=== PATIENT | male | born 1965 | race Caucasian/White ===

== ENCOUNTER → 2016-07-25 | Outpatient (CLI) | payer MEDICARE ==
[~2016-07-25] MED LIST: ASPI-664 PO; ATOR40TA68 PO; CITA20TA11 PO; FURO40TA4 PO; LANT3I SC; LOSA1TAB20 PO; NOVO3I SC; PRAS10TA6 PO
== END | disposition home or self-care (01) ==
LOC: CRE 11:10
PROVIDERS: ATTEND Hospitalist
DX: I25.10 Atherosclerotic heart disease of native coronary artery without angina pectoris (principal); Z98.61 Coronary angioplasty status; Z95.5 Presence of coronary angioplasty implant and graft
CPT/HCPCS: 93797

== ENCOUNTER 2016-08-25 11:06 | Inpatient (IN) | payer MEDICARE ==
[2016-08-25] VITALS (8 sets, daily range): BP systolic 126–165; BP diastolic 63–90; PULSE 61–75; RESP 18–20; TEMP 98.3; Ht 177.8 cm; Wt 97.5 kg
[~2016-08-25] VITALS: Ht 177.8 cm; Wt 97.5 kg
[2016-08-25] MEDS ORDERED: ONDANSETRON 4 MG INJ IV STA (11:25)
[2016-08-25] MEDS ORDERED: morphine 2 MG INJ IV STA (11:25)
[2016-08-25] MEDS ORDERED: ASPIRIN 81 MG TAB PO ONE (11:30)
[2016-08-25] MEDS ORDERED: NITROGLYCERIN (SL) 0.4 MG TAB SL ONE (11:30)
[2016-08-25 12:07] LABS: BASOPHILS % 0.3 % (0.0-2.0); EOSINOPHILS # 0.4 10^3/ul (0.0-0.5); EOSINOPHILS % 5.7 % (0.0-7.0); HEMATOCRIT 39.7 % (42.0-52.0); HEMOGLOBIN 13.2 g/dl (14.0-18.0); LYMPHOCYTES # 1.8 10^3/ul (0.8-2.9); LYMPHOCYTES % 26.9 % (15.0-51.0); MEAN CORPUSCULAR HEMOGLOBIN 26.5 pg (29.0-33.0); MEAN CORPUSCULAR HGB CONC 33.2 g/dl (32.0-37.0); MONOCYTE # 0.4 10^3/ul (0.3-0.9); NEUTROPHIL # 4.2 10^3/ul (1.6-7.5); NEUTROPHILS % 61.1 % (39.0-77.0); PLATELET COUNT 269 10^3/UL (140-440); RED BLOOD COUNT 4.97 10^6/ul (4.70-6.10); RED CELL DISTRIBUTION WIDTH 14.5 % (11.5-14.5); UNCORRECTED WBC 6.9 10^3/ul (4.8-10.8); WHITE BLOOD COUNT 6.9 10^3/ul (4.8-10.8)
[2016-08-25 12:10] LABS: CONDITION 1; LH ANALYZER COMMENTS 1
[2016-08-25 12:16] LABS: ALBUMIN 3.8 g/dl (3.3-4.9)
[2016-08-25 12:17] LABS: POTASSIUM 3.9 mmol/L (3.5-5.1)
[2016-08-25 12:18] LABS: INR 0.93; PROTIME 12.5 Sec (12.2-14.2)
--- NOTE | 2016-08-25 12:18 | RADRPT ---
PROCEDURE: XR Chest. CLINICAL INDICATION: Chest pain TECHNIQUE: Single portable view of the chest was obtained COMPARISON: 06/22/2016 FINDINGS: The heart is enlarged. The patient is status post sternotomy. The lungs are clear. There is no pleural effusion or pneumothorax. RPTAT: AA IMPRESSION: Mild Cardiomegaly. .Car Heredia MD, MD Date Time Electronically viewed and signed by .Car Heredia MD, MD on 08/25/2016 12:17 .S/
[2016-08-25 12:19] LABS: ALBUMIN/GLOBULIN RATIO 1.35; BILIRUBIN,INDIRECT 0.7 mg/dl (0-1.1); BILIRUBIN,TOTAL 0.7 mg/dl (0.2-1.3); CREATININE 0.64 mg/dl (0.61-1.24); TOTAL PROTEIN 6.6 g/dl (6.1-8.1)
[2016-08-25 12:20] LABS: CALCIUM 9.4 mg/dl (8.4-10.2)
[2016-08-25 12:41] LABS: TROPONIN-I 0.053 ng/ml (0.00-0.12)
--- NOTE | 2016-08-25 12:57 | ERA ---
ER Documentation Chief Complaint Date/Time DATE: 08/25/16 TIME: 12:54 Chief Complaint CHEST PAIN SINCE 3 DAYS. GETTING WORSE TODAY. RELIEF WITH NITRO. MILD SOB HPI 51-year-old man presents with left-sided pressure-like chest pain 5 days although getting worse over the last few days. He was at his cardiac rehabilitation facility today and experienced exertional chest pain and was referred here for evaluation. He states his pain is pressure-like and worse with exertion, he used nitroglycerin sublingual without relief. He has a history of coronary artery disease, prior CABG, PCI with stenting. Patient denies cough, no calf or leg swelling, no fevers or chills, no vomiting or diarrhea. ROS All systems reviewed and are negative except as per history of present illness. Medications Home Meds Active Scripts Prasugrel Hydrochloride* (Effient*) 10 Mg Tablet, 10 MG PO DAILY for 30 Days, TAB Prov:NATACHA GILLIS M. 06/23/16 Furosemide* (Furosemide*) 40 Mg Tablet, 40 MG PO BID for 30 Days, TAB Prov:NATACHA GILLIS . 06/23/16 Insulin Aspart* (Novolog Insulin Pen*) 100 Unit/Ml Soln, 10 UNIT SC WITH MEALS for 30 Days, UNITS with meals Prov:NATACHA GILLIS M. 06/23/16 Reported Medications Aspirin (Low Dose Aspirin) 81 Mg Tablet.dr, 81 MG PO DAILY, #30 TAB 06/22/16 Citalopram Hydrobromide* (Celexa*) 20 Mg Tablet, 20 MG PO DAILY, #30 TAB 06/22/16 Insulin Glargine* (Lantus*) 100 Unit/Ml Soln, 50 UNIT SC BID, #1 VIAL 06/22/16 Atorvastatin* (Atorvastatin*) 40 Mg Tablet, 40 MG PO QHS, #30 TAB 06/22/16 Losartan-Hydrochlorothiazide (Losartan-HCTZ) 100-25 Mg Tab, 1 TAB PO DAILY, TAB 06/22/16 Allergies Allergies: Coded Allergies: No Known Allergy (Unverified , 06/22/16) PMhx/Soc Coronary artery disease status post coronary artery bypass graft and previous right coronary artery thrombectomy and percutaneous transluminal coronary angioplasty with stenting of the distal RCA, hypertension, diabetes mellitus, congestive heart failure with a left ventricular ejection fraction 55%, anemia History of Surgery: Yes (2016, aug 2013) Anesthesia Reaction: No Hx Neurological Disorder: No Hx Respiratory Disorders: No Hx Cardiac Disorders: Yes (aug 2013, 2015, 2014) Hx Psychiatric Problems: No Hx Miscellaneous Medical Probl: No Hx Alcohol Use: No Hx Substance Use: No Hx Tobacco Use: No FmHx Family History: diabetes Physical Exam Vitals Vital Signs Date Time Temp Pulse Resp B/P Pulse Ox O2 Delivery O2 Flow Rate FiO2 08/25/16 12:08 98.3 79 20 168/96 98 Room Air 08/25/16 11:52 Nasal Cannula 08/25/16 11:07 97.9 66 22 168/96 99 Physical Exam GENERAL: Well-developed, well-nourished, well-hydrated, in no apparent distress , looks nontoxic in appearance HEENT: Moist mucous membranes, pink conjunctiva, no cervical spine tenderness or step-off deformities, no goiter, no jaundice or icterus, extraocular movements intact without pain. No submandibular induration, and no pharyngeal erythema NEURO: Alert and oriented 3, cranial nerves II through XII intact bilaterally, pupils equal round reactive to light, no focal deficits or facial asymmetry, sensation intact distally Strength 5/5 in upper and lower extremities bilaterally CARDIAC: Regular rate and rhythm, no murmurs rubs or gallops. Median sternotomy scar which reveals well healing LUNGS: Clear bilaterally no wheezing crackles or stridor ABDOMEN: Soft nontender, no guarding, no rigidity, no rebound, no psoas sign no obturator sign. Normoactive bowel sounds SKIN: Warm and dry to touch, no abrasions, contusions, or hematomas, no lacerations, no ecchymosis, no target lesions, and without ulcers EXTREMITIES: No clubbing cyanosis or edema, calves are bilaterally symmetrical, no Homans sign, no popliteal cord sign. Distal pulses equal and bilateral PSYCH: Normal affect without agitation or irritability Result Diagram: 08/25/16 1152 08/25/16 1152 Results 24 hrs Laboratory Tests Test 08/25/16 11:52 Alanine Aminotransferase (ALT/SGPT) 29IU/L Albumin 3.8g/dl Albumin/Globulin Ratio 1.35 Alkaline Phosphatase 100IU/L Anion Gap 14 Aspartate Amino Transf (AST/SGOT) 21IU/L B-Type Natriuretic Peptide 398PG/ML Basophils # 0.010^3/ul Basophils % 0.3% Blood Morphology Comment Blood Urea Nitrogen 13mg/dl Calcium Level 9.4mg/dl Carbon Dioxide Level 32mmol/L Chloride Level 99mmol/L Creatinine 0.64mg/dl Direct Bilirubin 0.00mg/dl Eosinophils # 0.410^3/ul Eosinophils % 5.7% Globulin 2.80g/dl Glucose Level 224mg/dl Hematocrit 39.7% Hemoglobin 13.2g/dl Hemoglobin A1c 9.2% INR International Normalized Ratio 0.93 Indirect Bilirubin 0.7mg/dl Lipase 24U/L Lymphocytes # 1.810^3/ul Lymphocytes % 26.9% Mean Corpuscular Hemoglobin 26.5pg Mean Corpuscular Hemoglobin Concent 33.2g/dl Mean Corpuscular Volume 80.0fl Mean Platelet Volume 8.0fl Monocytes # 0.410^3/ul Monocytes % 6.0% Neutrophils # 4.210^3/ul Neutrophils % 61.1% Nucleated Red Blood Cells # 0.010^3/ul Nucleated Red Blood Cells % 0.0/100WBC Platelet Count 95226^3/UL Potassium Level 3.9mmol/L Prothrombin Time 12.5Sec Prothrombin Time Ratio 1.0 Red Blood Count 4.9710^6/ul Red Cell Distribution Width 14.5% Sodium Level 141mmol/L Total Bilirubin 0.7mg/dl Total Protein 6.6g/dl Troponin I 0.053ng/ml White Blood Count 6.910^3/ul Current Medications Medications (Trade) Dose Ordered Sig/Jeff Route PRN Reason Start Time Stop Time Status Last Admin Dose Admin Nitroglycerin (Nitroglycerin (Sl Tab) 0.4 Mg) 1 tab ONCE ONCE SL 08/25/16 11:30 08/25/16 11:31 DC 08/25/16 12:02 Aspirin (Aspirin) 324 mg ONCE ONCE PO 08/25/16 11:30 08/25/16 11:31 DC 08/25/16 12:01 Morphine Sulfate (morphine) 2 mg ONCE STAT IV 08/25/16 11:25 08/25/16 11:28 DC 08/25/16 12:02 Ondansetron HCl (Zofran Inj) 4 mg ONCE STAT IV 08/25/16 11:25 08/25/16 11:28 DC 08/25/16 12:02 Procedures/MDM IV line was established patient was placed on monitoring manager rhythm strip revealed a sinus rhythm at about 70 bpm with upright P and T waves. Patient was afebrile. EKG performed, read by me revealed a normal sinus rhythm at 73 bpm, normal axis , narrow QRS complex, no concerning ST elevations or depressions noted. One view chest x-ray performed, read by me revealed cardiomegaly and sternotomy wires in place, no acute infiltrates, no pneumothorax, no end of the diaphragm. I administered aspirin 324 mg p.o. 1, nitroglycerin sub-lingual 0.4 mg 1, morphine 2 mg IV, and Zofran 4 mg IV with good effect. CBC was unremarkable, electrolytes were within normal limits, liver function tests are normal, troponin was negative. The patient's history, physical exam and clinical presentation is concerning for possible cardiogenic etiology and acute coronary syndrome. Based on the patient's clinical exam and history and risk factors, I have a much lower clinical concern for pulmonary embolism, acute aortic dissection, pneumothorax, pneumonia, cardiac tamponade HEART Score: 5 MACE Rate: 16% Shared Decision Making: We had a conversation regarding risk stratification, MACE rate, and the risks, benefits, alternatives of disposition planning options. Disposition planning: Inpatient management to telemetry setting with cardiology consultation. 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 Departure Diagnosis: Primary Impression: Chest pain Qualified Code: R07.9 - Chest pain, unspecified type Additional Impression: Hypertension Qualified Code: I10 - Essential hypertension Condition: FABIOLA Sanchez MD Aug 25, 2016 12:57
[2016-08-25] MEDS ORDERED: GLUCOSE GEL 15 GRAM TUBE PO PRN ×2 (14:00)
[2016-08-25] MEDS ORDERED: DEXTROSE 50% 50 ML SYRINGE IV PRN ×2 (14:00)
[2016-08-25] MEDS ORDERED: GLUCAGON 1 MG INJ IM PRN (14:00)
[2016-08-25] MEDS ORDERED: GLUCOSE GEL 15 GRAM TUBE BUCCAL PRN (14:00)
[2016-08-25] MEDS ORDERED: INFLUENZA VIRUS VACCINE 0.5 ML SYG IM* ONE (15:30)
[2016-08-25] MEDS: NITROGLYCERIN (SL) 0.4 MG TAB SL PRN ×2 (17:34→18:13)
[2016-08-25] MEDS: CITALOPRAM 20 MG TAB PO SCH (17:34)
--- NOTE | 2016-08-25 17:48 | CONS ---
DATE OF ADMISSION: 08/25/2016 DATE OF CONSULTATION: 08/25/2016 TYPE OF CONSULTATION: Cardiology. REASON FOR CONSULTATION: Chest pain. CHIEF COMPLAINT: Chest pain. HISTORY OF PRESENT ILLNESS: Thank you for this referral. History obtained from the patient, wilmer springer review of the old chart, discussion with physician and staff. The discussion with his . Jj is 51-year-old gentleman with history of coronary artery disease, status post coronary artery bypass graft, status post multiple PCI, who presented to emergency room with complaint of chest pain. The patient was seen by me in the last admission to the hospital in June where he underwent PCI of his right coronary artery. Since then, he has been doing well, has been going to cardiac rehabilita tion. However, the past 4 days he has noted exertional chest tightness and pressure similar to the pain that he had prior to this previous stent. The pain got worse today on his walking he was going to go to the cardiac rehab he started having severe chest pain, called my office, I advised h im to come to the emergency room immediately. Currently, patient is chest pain free. The pain is a nteriorly, goes to the left side. It lasts a maximum of 12 to ____ minutes. It resolved when he r ests. Exacerbated by activity and walking. PAST MEDICAL HISTORY: History of coronary artery disease, status multiple PCIs, history of non-ST e levation myocardial infarction in June, he underwent PCI of the right coronary artery with a 2.5 x 20 Promus drug-eluting stent by myself at that time. History of congestive heart failure with di astolic dysfunction, hypertension, diabetes, dyslipidemia, chronic kidney disease. FAMILY HISTORY: The patient's father with [place] in his 90s. ALLERGIES: NO REPORTED DRUG ALLERGIES. MEDICATIONS: At home, he is on: 1. Insulin. 2. Aspirin. 3. Lipitor. 4. Citalopram. 5. Lasix p.r.n. only. 6. ____ 7. Imdur 30 mg b.i.d. 8. Losartan/hydrochlorothiazide 100-25. 9. Toprol XL 100 mg. 10. Effient. REVIEW OF SYSTEMS: He denied all other history of systems except for above-mentioned. PHYSICAL EXAMINATION: VITAL SIGNS: Temperature 98.2, heart rate of 62, blood pressure 148/70, respiration rate of 19, sat urating 94% to 96%. HEENT: Normocephalic, atraumatic. Pupils are equal. CARDIOVASCULAR: Regular rate and rhythm, systolic murmur grade I. PULMONARY: No wheezes, no rhonchi. GASTROINTESTINAL: Obese, soft, nontender. EXTREMITIES: No significant lower extremity edema. NEUROLOGIC: Awake and alert, responds appropriately. PSYCHIATRIC: Appears to be calm and pleasant. LABORATORY: Sodium 141, potassium 3.9, BUN of 13, creatinine 0.64, glucose of 224, ____ of 9.2, BNP of 398. WBC of 6.2, hemoglobin ____, platelets of 269. Chest x-ray shows cardiomegaly. EKG shows normal sinus rhythm. T wave abnormalities ____ anterior ischemia. Old chart was reviewed and the old angiogram on the film were reviewed. The patient's echocardiogram on 06/22/2016 showed ejection fraction of 55%. Coronary angiography done on 06/22/2016 showed left main was small. LAD of 70% pr oximal, 100% mid lesion. [place] to LAD was widely patent. Circumflex artery had a 50% OM1 branch, OM 2 which was smaller, was about 70%. Ramus intermedius was also a small vessel. Saphenous vein to O M was occluded. Saphenous vein to the PDA was patent; however, the RCA distal stenosis had about 90 % stenosis which was going to posterolateral, this was successfully stented. ASSESSMENT AND PLAN 1. Chest pain syndrome consistent with acute coronary syndrome/unstable angina. 2. Coronary artery disease with history of multiple ____. 3. History of multiple PCIs. 4. History of coronary bypass grafting. 5. Diabetes. 6. Hypertension. 7. Dyslipidemia. 8. Chronic kidney disease, currently stable. 9. History of hypertension, congestive heart failure secondary to diastolic dysfunction, currently stable, class II. RECOMMENDATIONS: We will continue with the aspirin and Effient. Losartan and Toprol will be contin ued as well. Ranexa will be added. His Imdur will be continued. Given his presenting symptoms, hi s past history, we will schedule him for left heart catheterization, coronary angiogram and possible percutaneous coronary intervention. Risks, benefits of procedure discussed with the patient in the presence of his in detail. This included infection, vascular complication, bleeding complicat ion, [place], stroke, arrhythmia, , renal failure, etc., discussed with the patient and the family. The patient and family consented to the procedure. We will schedule the patient for the procedure tomorrow. ____ will be added. Will ask Dr. Smith to evaluate the patient. Dictated By: MARTITA LOERA MD AV/COLLIN Conf#: [id number] DID#: [id number] CC: TANIYA SALAZAR DO;*EndCC*
[2016-08-25] MEDS ORDERED: INSULIN ASPART [NOVOLOG] 3 ML PEN SC SCH ×2 (17:55→18:00)
[2016-08-25] MEDS ORDERED: FUROSEMIDE 40 MG TAB PO SCH (18:00)
--- NOTE | 2016-08-25 18:04 | HP ---
DATE OF ADMISSION: 08/25/2016 CHIEF COMPLAINT: Chest pain. HISTORY OF PRESENT ILLNESS: This is a 51-year-old male with a past medical history significant for coronary artery disease. The patient is status post CABG 2 years ago, status post multiple cardiac catheterizations and PCIs, most recently 2 months ago. He presents to [facility] for ongoing chest pain for the last several weeks. Patient history begins approximately 2 months ag o when he underwent cardiac catheterization and had a stent placed in one of his grafts. One week f ollowing the procedure, the patient stated that he had continuous chest pain, that has been ongoing. He had been overall stable. The patient states over the last week his chest pain has intensified, tried more nitroglycerins for control. Just one day prior to admission, patient developed severe substernal chest pain with radiation. He took 3 nitroglycerin tablets with improvement of moderate improvement in symptoms. However, his symptoms again progressively gotten worse over the course of the next several hours. As a result, the patient came to [facility] Emergency Room. Upon arrival, patient was noted to be hypertensive with systolic pressures in the 160s. The patient in [facility] emergency room was given nitroglycerin, IV morphine, aspirin with improvement of chest pain. The patient had initial laboratory workup showed troponin was negative x1. Additionally, the patient s tates that his blood pressure has been elevated over the last several weeks and states that his gluc ose levels have been elevated. The patient is a type 1 diabetic and states that he has insulin resi stance. The patient denies any hemoptysis, hemetemesis, hematochezia. PAST MEDICAL HISTORY: As stated above, history of type 1 diabetes, history of coronary artery disea se, history of hypertension, history of dyslipidemia. PAST SURGICAL HISTORY: Status post CABG 2 years ago, status post multiple cardiac catheterizations and PCI. FAMILY HISTORY: Positive for diabetes. MEDICATIONS: Have been reviewed and reconciled. ALLERGIES: NO KNOWN DRUG ALLERGIES. SOCIAL HISTORY: Does not drink, smoke or do drugs. PHYSICAL EXAMINATION: VITAL SIGNS: Blood pressure is currently 168/72, respiration is 16, temperature 98.6, heart rate 72 . HEENT: Head is normocephalic. Pupils are reactive to light. NECK: Supple. HEART: Regular rate. LUNGS: Show diminished breath sounds at base, otherwise clear. ABDOMEN: Soft, nontender to palpation. No rebound or guarding. EXTREMITIES: Negative for clubbing, cyanosis. Positive edema, right lower extremity. DERMATOLOGIC: No rashes. MUSCULOSKELETAL: No joint effusions. NEUROLOGIC: No focal deficits. LABORATORY DATA: Shows white count 6.9, hemoglobin 13.2, hematocrit 39.7, platelet count is 269. S odium 141, potassium 2.9, chloride 99, bicarbonate 32, BUN 13, creatinine 0.64, glucose 224. Tropon in is 0.053. BNP is 398. The patient's chest x-ray shows mild cardiomegaly. ASSESSMENT AND PLAN: This is a 51-year-old male who presents with: 1. Acute coronary syndrome/anginal chest pain. The plan at this point is to admit the patient to t elemetry. We will check serial troponins to rule out a nonSTEMI. Will continue medical management with aspirin and statin therapy, Effient. Will continue nitroglycerin p.r.n. Morphine p.r.n. for p ain. Will continue supplemental oxygen. Cardiology consult, Dr. Draper has been placed for the pos sibility of cardiac catheterization. We will continue to monitor closely. 2. Coronary artery disease, status post coronary artery bypass graft. Status post multiple percuta neous coronary interventions. The patient is currently in acute coronary syndrome as stated above. Continue medical management. 3. Hypertension. We will continue current blood pressure regimen, adjust medications as needed. 4. Type 1 diabetes. The patient is insulin resistant. We will continue patient's Lantus and insul in. We will place an endocrine consult with the patient's customer operations intern, Dr. Smith for evaluati on. 5. Anemia. Continue to monitor hemoglobin and hematocrit levels. 6. Dyslipidemia. Continue statin therapy. 7. Gastrointestinal and deep venous thrombosis prophylaxis. Continue proton pump inhibitor and seq uential leg squeezers. 8. Depression. Continue medical management. 9. History of congestive heart failure. The patient is noted to have some lower extremity edema. Continue diuretic therapy and monitor. Please note I spent 20 minutes time face to face with the patient and patient is FULL CODE. Dictated By: TANIYA GUPTA/COLLIN Conf#: [id number] DID#: [id number]
[2016-08-25] MEDS ORDERED: morphine 2 MG INJ IV PRN (19:30)
--- NOTE | 2016-08-25 20:06 | CONS ---
Date/Time of Note Date/Time of Note DATE: 08/25/16 TIME: 19:53 Assessment/Plan Assessment/Plan Problems: (1) Type 1 diabetes mellitus with hyperglycemia Status: Chronic Comment: Place pt. on large dose basal bolus regimen 60% bolus/40% basal. Will try lantus 80 units (40 q12) and Novolog 40 units sq qac plus very aggressive correctional scale (1 unit:10 mg/dL over 140 mg/dL) on carb controlled diet. Will follow with you. As outpt. likely will need U500 insulin. Consultation Date/Type/Reason Admit Date/Time Aug 25, 2016 at 12:53 Date of Consultation: Aug 25, 2016 Type of Consultation: Endocrinology Reason for Consultation T1DM out of control (OOC) Referring Provider: TANIYA SALAZAR DO Hx of Present Illness 51 y/o C M w/ h/o T1DM insulin resistance syndrome and vasculopathy w/ CAD h/o 3 vs. CABG, multiple stents, diastolic CHF, HTN, hyperlipidemia, in [facility] until last 4 days when he developed increased exertional chest pain. Pt. presented to ER with this. Consulted cardiology who felt pt. likely needs another PCI which he will have tomorrow. Endo consulted to improve DM management. Pt. previously seeing me in office but has not been in in 11 months. Constitutional: improved, no complaints Eyes: no complaints ENT: no complaints Respiratory: shortness of breath Cardiovascular: chest pain Gastrointestinal: no complaints Genitourinary: no complaints Musculoskeletal: no complaints Neurologic: no complaints Past Medical History Medical History: angina, congestive heart failure, coronary artery disease, diabetes, high cholesterol, hypertension Past Surgical History Past Surgical Hx: angioplasty, coronary bypass surgery, other (knee surgery, tympanostomy) Family History Significant Family History: heart disease, cancer (prostate), hypertension Social History b. 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 ago) Drug Use: other (percocet, quit 3 years ago) Exam/Review of Systems Vital Signs Vitals VS - Last 72 Hours, by Label Date Time Temp Pulse Resp B/P Pulse Ox O2 Delivery O2 Flow Rate FiO2 08/25/16 16:53 62 08/25/16 15:47 98.2 62 19 148/70 94 08/25/16 14:56 61 08/25/16 14:04 98.0 68 19 165/90 96 Room Air 08/25/16 12:08 98.3 79 20 168/96 98 Room Air 08/25/16 11:52 Nasal Cannula 08/25/16 11:07 97.9 66 22 168/96 99 Vital Signs Date Time Temp Pulse Resp B/P Pulse Ox O2 Delivery O2 Flow Rate FiO2 08/25/16 16:53 62 08/25/16 15:47 98.2 19 148/70 94 08/25/16 14:04 Room Air Exam Constitutional: alert, obese, oriented Psych: nl mood/affect, no complaints Eyes: EOMI, PERRL, nl conjunctiva, nl lids, nl sclera ENMT: mucosa pink and moist, nl external ears & nose Neck: non-tender, supple, No bruits, No masses, No thyromegaly Respiratory: clear to auscultation, normal air movement Cardiovascular: nl pulses, regular rate and rhythm, No edema, No murmurs/extra sounds, No rub Gastrointestinal: bowel sounds, nl liver, spleen, non-tender, soft, No mass, No rebound or guarding Musculoskeletal: nl extremities to inspection Extremities: normal pulses, No clubbing, No cyanosis, No edema Neurological: BIOINFORMATICS TEAM MEMBER II-XII intact, nl mental status, nl speech, nl strength Additional Comments Bedside Glucose - 72 Hours Test 08/25/16 14:34 08/25/16 17:15 Bedside Glucose 194mg/dL (70-220) 285mg/dL (70-220) H Results Result Diagram: 08/25/16 1152 08/25/16 1152 Results 24 hrs Laboratory Tests Test 08/25/16 11:52 08/25/16 14:34 08/25/16 16:50 08/25/16 17:15 Alanine Aminotransferase (ALT/SGPT) 29 Albumin 3.8 Albumin/Globulin Ratio 1.35 Alkaline Phosphatase 100 Anion Gap 14 Aspartate Amino Transf (AST/SGOT) 21 B-Type Natriuretic Peptide 398 H Basophils # 0.0 Basophils % 0.3 Blood Morphology Comment Blood Urea Nitrogen 13 Calcium Level 9.4 Carbon Dioxide Level 32 H Chloride Level 99 Creatinine 0.64 Direct Bilirubin 0.00 Eosinophils # 0.4 Eosinophils % 5.7 Globulin 2.80 Glucose Level 224 H Hematocrit 39.7 L Hemoglobin 13.2 L Hemoglobin A1c 9.2 H INR International Normalized Ratio 0.93 Indirect Bilirubin 0.7 Lipase 24 Lymphocytes # 1.8 Lymphocytes % 26.9 Mean Corpuscular Hemoglobin 26.5 L Mean Corpuscular Hemoglobin Concent 33.2 Mean Corpuscular Volume 80.0 L Mean Platelet Volume 8.0 Monocytes # 0.4 Monocytes % 6.0 Neutrophils # 4.2 Neutrophils % 61.1 Nucleated Red Blood Cells # 0.0 Nucleated Red Blood Cells % 0.0 Platelet Count 269 Potassium Level 3.9 Prothrombin Time 12.5 Prothrombin Time Ratio 1.0 Red Blood Count 4.97 Red Cell Distribution Width 14.5 Sodium Level 141 Total Bilirubin 0.7 Total Protein 6.6 Troponin I 0.053 0.057 White Blood Count 6.9 Bedside Glucose 194 285 H Medications Medications Current Medications Aspirin (Halfprin) 81 mg DAILY PO ; Start 08/26/16 at 09:00 Atorvastatin Calcium (Lipitor) 40 mg QHS PO ; Start 08/25/16 at 21:00 Citalopram Hydrobromide (Celexa) 20 mg DAILY PO Last administered on 08/25/16 17:34; Admin Dose 20 MG; Start 08/25/16 at 14:00 Insulin Glargine (Lantus) 50 unit BID SC ; Start 08/25/16 at 21:00 Prasugrel (Effient) 10 mg DAILY PO ; Start 08/26/16 at 09:00 Nitroglycerin (Nitroglycerin (Sl Tab) 0.4 Mg) 1 tab [id number] PRN SL chest pain Last administered on 08/25/16 18:13; Admin Dose 1 TAB; Start 08/25/16 at 14:00 Miscellaneous Information 1 ea NOTE XX ; Start 08/25/16 at 14:00 Glucose (Glutose) 15 gm Q15M PRN PO DECREASED GLUCOSE; Start 08/25/16 at 14:00 Glucose (Glutose) 22.5 gm Q15M PRN PO DECREASED GLUCOSE; Start 08/25/16 at 14: 00 Dextrose (D50w Syringe) 25 ml Q15M PRN IV DECREASED GLUCOSE; Start 08/25/16 at 14:00 Dextrose (D50w Syringe) 50 ml Q15M PRN IV DECREASED GLUCOSE; Start 08/25/16 at 14:00 Glucagon (Glucagen) 1 mg Q15M PRN IM DECREASED GLUCOSE; Start 08/25/16 at 14:00 Glucose (Glutose) 15 gm Q15M PRN BUCCAL DECREASED GLUCOSE; Start 08/25/16 at 14 :00 Acetylcysteine (Nac) 600 mg BID PO ; Start 08/25/16 at 21:00 Ranolazine (Ranexa) 500 mg Q12 PO ; Start 08/25/16 at 21:00 Losartan Potassium (Cozaar) 100 mg DAILY PO ; Start 08/26/16 at 09:00 Isosorbide Mononitrate (Imdur) 30 mg BID PO ; Start 08/25/16 at 21:00 Morphine Sulfate (morphine) 1 mg Q4H PRN IV PAIN; Start 08/25/16 at 19:30 Nitroglycerin (Nitroglycerin 2% Oint) 1 inch Q8 TD ; Start 08/25/16 at 22:00 ANTIONETTE LIEBERMAN MD Aug 25, 2016 20:06
[2016-08-25] MEDS: RANOLAZINE (SR) 500 MG TAB PO SCH (20:38)
[2016-08-25] MEDS: ACETYLCYSTEINE 600 MG CAP PO SCH (20:38)
[2016-08-25] MEDS: ATORVASTATIN 40 MG TAB PO SCH (20:39)
[2016-08-25] MEDS: ISOSORBIDE MONONITRATE(SR)30 MG TAB PO SCH (20:39)
[2016-08-25] MEDS: INSULIN GLARGINE [LANtus] 3 ML PEN SC SCH (20:41)
[2016-08-25] MEDS: INSULIN ASPART [NOVOLOG] 3 ML PEN SC SCH (20:42)
[2016-08-25] MEDS ORDERED: INSULIN GLARGINE [LANtus] 3 ML PEN SC SCH (21:00)
[2016-08-25] MEDS: NITROGLYCERIN 2% 1 GM OINT PKT TD SCH (22:00)
[2016-08-25] MEDS: morphine 4 MG/ML VIAL IV PRN (22:09)
[2016-08-26] VITALS (34 sets, daily range): BP systolic 107–172; BP diastolic 54–111; PULSE 52–82; RESP 11–42
[2016-08-26] MEDS: ACCUCHECK AT 2AM (Patients on SS coverage) XX SCH (02:00)
[2016-08-26] MEDS: morphine 4 MG/ML VIAL IV PRN ×3 (04:00→21:37)
[2016-08-26 04:22] LABS: ADD UMIC NO; URINE BILIRUBIN (Dip) NEGATIVE (NEGATIVE); URINE BLOOD (Dip) NEGATIVE (NEGATIVE); URINE COLOR LT. YELLOW (YELLOW); URINE GLUCOSE (Dip) >=1000 % (NEGATIVE); URINE KETONES (Dip) NEGATIVE (NEGATIVE); URINE LEUKOCYTE ESTERASE (Dip) NEGATIVE (NEGATIVE); URINE NITRITE (Dip) NEGATIVE (NEGATIVE); URINE TOTAL PROTEIN (Dip) NEGATIVE (NEGATIVE); URINE UROBILINOGEN (Dip) 0.2 E.U./dL (0.1-1.0)
[2016-08-26] MEDS: NITROGLYCERIN 2% 1 GM OINT PKT TD SCH ×3 (05:14→21:36)
[2016-08-26 07:23] LABS: BASOPHILS % 0.3 % (0.0-2.0); EOSINOPHILS # 0.4 10^3/ul (0.0-0.5); EOSINOPHILS % 5.2 % (0.0-7.0); HEMATOCRIT 36.4 % (42.0-52.0); HEMOGLOBIN 12.1 g/dl (14.0-18.0); LYMPHOCYTES # 2.3 10^3/ul (0.8-2.9); LYMPHOCYTES % 32.5 % (15.0-51.0); MEAN CORPUSCULAR HEMOGLOBIN 26.4 pg (29.0-33.0); MEAN CORPUSCULAR HGB CONC 33.2 g/dl (32.0-37.0); MEAN CORPUSCULAR VOLUME 79.5 fl (82.0-101.0); MEAN PLATELET VOLUME 8.4 fl (7.4-10.4); MONOCYTE # 0.5 10^3/ul (0.3-0.9); MONOCYTES % 7.3 % (0.0-11.0); NEUTROPHIL # 3.9 10^3/ul (1.6-7.5); NEUTROPHILS % 54.7 % (39.0-77.0); PLATELET COUNT 245 10^3/UL (140-440); RED BLOOD COUNT 4.58 10^6/ul (4.70-6.10); RED CELL DISTRIBUTION WIDTH 14.6 % (11.5-14.5); UNCORRECTED WBC 7.1 10^3/ul (4.8-10.8); WHITE BLOOD COUNT 7.1 10^3/ul (4.8-10.8)
[2016-08-26] MEDS: INSULIN ASPART [NOVOLOG] 3 ML PEN SC SCH ×7 (07:25→21:48)
[2016-08-26 07:27] LABS: ALBUMIN 3.7 g/dl (3.3-4.9)
[2016-08-26 07:28] LABS: POTASSIUM 3.7 mmol/L (3.5-5.1)
[2016-08-26 07:29] LABS: INR 0.98
[2016-08-26 07:30] LABS: ALBUMIN/GLOBULIN RATIO 1.42; BILIRUBIN,INDIRECT 0.6 mg/dl (0-1.1); BILIRUBIN,TOTAL 0.6 mg/dl (0.2-1.3); CREATININE 0.78 mg/dl (0.61-1.24); TOTAL PROTEIN 6.3 g/dl (6.1-8.1)
[2016-08-26 07:31] LABS: CALCIUM 8.7 mg/dl (8.4-10.2); CHOL/HDL RATIO 6.1 RATIO
[2016-08-26 07:31] LABS: MAGNESIUM 1.8 mg/dl (1.7-2.5); PHOSPHORUS 3.9 mg/dl (2.5-4.9)
[2016-08-26 07:42] LABS: CONDITION 1; LH ANALYZER COMMENTS 1
[2016-08-26 07:59] LABS: THYROID STIMULATING HORMONE 1.14 MIU/L (0.465-4.680)
[2016-08-26] MEDS: INSULIN GLARGINE [LANtus] 3 ML PEN SC SCH ×2 (08:00→09:33)
[2016-08-26 08:15] LABS: CK-MB 0.69 ng/ml (0.0-2.4)
[2016-08-26 08:16] LABS: TROPONIN-I 0.077 ng/ml (0.00-0.12)
[2016-08-26] MEDS ORDERED: D5W + KCL 20 MEQ 1,000 ML IV SCH (08:30)
[2016-08-26] MEDS: LOSARTAN 50 MG TAB PO SCH (08:45)
[2016-08-26] MEDS: CITALOPRAM 20 MG TAB PO SCH (08:45)
[2016-08-26] MEDS: PRASUGREL HYDROCHLORIDE 10 MG TABLET PO SCH (08:45)
[2016-08-26] MEDS: ACETYLCYSTEINE 600 MG CAP PO SCH ×2 (08:45→21:35)
[2016-08-26] MEDS: ASPIRIN (EC) 81 MG TAB PO SCH (08:45)
[2016-08-26] MEDS: ISOSORBIDE MONONITRATE(SR)30 MG TAB PO SCH ×2 (08:46→21:34)
[2016-08-26] MEDS: NITROGLYCERIN (SL) 0.4 MG TAB SL PRN (08:47)
[2016-08-26] MEDS: RANOLAZINE (SR) 500 MG TAB PO SCH ×2 (08:56→22:34)
--- NOTE | 2016-08-26 09:12 | PN ---
DATE: 08/26/2016 SUBJECTIVE: The patient's chest pain is improved with nitroglycerin sublingual. The patient is com plaining about back pain in his left upper back which he says has been ongoing. He feels there may be a foreign object there. No other acute events. No hemoptysis, hematemesis, or hematochezia. OBJECTIVE: VITAL SIGNS: Blood pressure 147/75, respirations 18, pulse 61, temperature 97.6. HEENT: Head is normocephalic. NECK: Supple. HEART: Regular rate. LUNGS: Show diminished breath sounds at the base. ABDOMEN: Soft, nontender to palpation. No rebound or guarding. EXTREMITIES: Negative for clubbing, cyanosis, no edema. DERMATOLOGIC: No rashes. MUSCULOSKELETAL: The patient has noted tenderness to palpation of the left upper back outer quadran t. The region of tenderness has a 1 x 1 cm lesion. NEUROLOGIC: No focal deficits. DERMATOLOGIC: No rashes. LABORATORY DATA: Shows a sodium 140, potassium 2.7, chloride 97, BUN 17, creatinine 0.78. White co unt 7.1, hemoglobin 10.1, hematocrit 36.4, platelet count is 245. ASSESSMENT AND PLAN: 1. Acute coronary syndrome/anginal chest pain. The patient was ruled out for a foe-LI-pfnrinltc my ocardial infarction as his troponins were negative. But continues to have anginal chest pain, and g esdras extensive cardiac history, the patient is scheduled for cardiac catheterization today. We will continue current medical management with aspirin, statin therapy. Will continue . Continue n itroglycerin sublingual, morphine p.r.n. for pain. Appreciate cardiology's help with evaluation. 2. History of coronary artery disease status post coronary artery bypass graft. We will continue c urrent medical management. The patient is currently in acute coronary syndrome a stated above. 3. Hypertension. Continue current blood pressure regimen. 4. Diabetes type 1. The patient's insulin regimen was adjusted by Dr. Smith. I greatly apprecia te his help with management. 5. Left posterior back lesion. Underlying etiology is unclear. Will check an ultrasound for evalu ation. 6. Anemia. Continue to monitor hemoglobin and hematocrit levels. 7. Dyslipidemia. Continue statin therapy. 8. Gastrointestinal and deep venous thrombosis prophylaxis. Continue proton pump inhibitors and se quential leg squeezers. 9. Depression. Continue medical management. 10. History of congestive heart failure with noted lower extremity edema. Continue current medical management and monitor. Dictated By: TANIYA GUPTA/COLLIN Conf#: [id number] DID#: [id number]
[2016-08-26] MEDS ORDERED: IODIXANOL LOCM 100 ML BTL ONE (13:21)
[2016-08-26] MEDS ORDERED: FENTAnyl 50 MCG/ML VIAL ONE ×2 (13:21→14:30)
[2016-08-26] MEDS ORDERED: LIDOCAINE 1% (MDV) 20 ML INJ ONE (13:21)
[2016-08-26] MEDS ORDERED: MIDAZOLAM 1 MG/ML 2 ML INJ ONE (13:22)
[2016-08-26] MEDS ORDERED: VERAPAMIL 5 MG INJ ONE (14:00)
[2016-08-26] MEDS ORDERED: NITROGLYCERIN (IC) 100 MCG/ML INJ ONE (14:00)
[2016-08-26] MEDS ORDERED: SOD CHLORIDE 0.9% 1,000 ML IV SCH (14:52)
--- NOTE | 2016-08-26 15:23 | SP ---
DATE OF PROCEDURE: 08/26/2016 NAME OF PROCEDURE: 1. Left heart catheterization with coronary angiography. 2. Selective graft angiography. 3. Successful percutaneous transluminal coronary angioplasty and stenting of the mid to distal righ t coronary artery from 99% stenosis and no significant residual stenosis using a 2.75 x 32 mm Promus drug-eluting stent, followed by a 2.75 x 8 mm drug-eluting stent. 4. Thrombectomy of the right coronary artery. SURGEON: Martita Draper MD CLINICAL INDICATIONS: ____ 51-year-old gentleman who presented with acute coronary syndrome, unsta ble angina. FINDINGS: 1. Left main coronary artery appeared to having ____% stenosis. 2. Left anterior descending 100% occluded at the mid level. A few months ago, was noted to have pa tent left internal mammary artery to left anterior descending. 3. Left circumflex artery gives 2 obtuse marginals. The first one is moderate to large with about 70% diffuse stenosis. Proximal left circumflex artery has about 60% stenosis. Second obtuse margin al is a very small vessel with multiple branches. It has about probably 70% diffuse stenosis. 4. Right coronary artery had 99% mid to distal in-stent restenosis. After successful PTCA stenting , had no significant residual stenosis left. 5. Saphenous vein graft ____to right coronary artery which goes to PDA and not covering the ERINN are a was patent. Previously was noted ____was occluded and also a ROBLEDO to LAD was patent. LV systolic pressure is 155, LVEDP is 8. No significant gradient noted across the aortic valve. DESCRIPTION OF PROCEDURE: Written informed consent was obtained. The risks and benefits were discu ssed with the patient in detail. The patient was brought to the labor utilization superintendent and placed in supine posit ion. Right and left groins were prepped and draped in sterile fashion. Right groin was anesthetize d with 1% lidocaine, mobilizing a 6-[place] sheath placed in right femoral artery. JR4 catheter was advanced and engaged in the right coronary artery. Angiogram was obtained. It was advanced and en gaged ____ right coronary artery and angiogram was obtained. I then changed to left heart catheteri zation ____ since the JL4 cardiac catheter was placed across the left main coronary artery and angio gram was obtained. Pigtail was advanced and engaged in the left main, hemodynamics recorded. Pullb ack aortic pressure was measured. At this time, I decided to perform the PCI of the right coronary artery. I used AL 0.75 guiding catheter which was advanced and engaged in the right coronary artery . BMW wire used across the lesion and 2.5 x 12 mm noncompliant balloon was across the lesion, multi ple times inflated. Angiogram was obtained. Contrast used and thrombectomy was obtained. Angiogram was obtained. Finally, I used a 2.75 x 32 m m drug-eluting stent which was placed across the distal RCA at 16 atmospheres. Angiogram was obtain ed. Proximal to the stent also appeared to have an area of stenosis. It was tried to cover this ar ea as well. I used a 2.75 x 8 mm which was placed across this lesion and inflated at 14 and 16 atmo spheres. Then the stent balloon was advanced and the overlapping was post-dilated up to 16 atmosphe res. Final angiogram was obtained which showed LENORE 3 flow, no evidence of dissection, no significa nt residual stenosis. Catheter and Glidewire were removed. Right femoral angiogram had been obtain ed ____. Perclose was applied. Mild pressure was applied. Patient tolerated the procedure without complication. Patient is transferred to recovery room in stable condition. IMMEDIATE COMPLICATIONS: None. CONCLUSION: Successful PTCA and stenting of the thrombectomy of the right coronary artery from sub total lesion and no significant residual stenosis. RECOMMENDATIONS: Aggressive medical therapy. ICU observation overnight. Dictated By: MARTITA JUAREZ/COLLIN Conf#: [id number] DID#: [id number]
--- NOTE | 2016-08-26 18:29 | PN ---
DATE: 08/26/2016 CARDIOLOGY FOLLOWUP SUBJECTIVE: The patient still has had intermittent chest pain overnight. Resting pain. No palpita tion. No bleeding. MEDICATIONS: Reviewed. PHYSICAL EXAMINATION: VITAL SIGNS: Temperature 98.8, heart rate of 60, blood pressure 160/90, respiratory rate of 18. HEENT: Normocephalic, atraumatic. Obese gentleman. Pupils are equal. CARDIOVASCULAR: Regular rate and rhythm. Systolic murmur. PULMONARY: With no wheezes anteriorly. GASTROINTESTINAL: Obese, soft, nontender. EXTREMITIES: With trivial edema. NEUROLOGIC: Awake, responds appropriately. PSYCHIATRIC: Appears to be calm. LABORATORY: WBC of 7.1, hemoglobin 12.1, platelets 245. Sodium 140, potassium 3.7, BUN of 17, crea tinine 0.78, glucose 228. Troponin 0.077. ASSESSMENT AND PLAN: 1. Acute coronary syndrome. 2. History of coronary artery disease. 3. History of myocardial infarction. 4. History of percutaneous coronary intervention. 5. History of bypass surgery. 6. Hypertension. 7. History of congestive heart failure. 8. History of diastolic dysfunction. 9. Renal insufficiency. 10. Dyslipidemia. 11. Diabetes, poorly controlled. RECOMMENDATIONS: Dr. Smith's input is appreciated. We will proceed with left heart catheterizati on, coronary angio, possible percutaneous coronary intervention. Risks, benefits discussed with the patient and his and consent has been obtained. Continue with aspirin and continue with Effien t and continue with blood pressure medication for now. Dictated By: MARTITA JUAREZ/COLLIN Conf#: [id number] DID#: [id number] CC: TANIYA SALAZAR DO;*EndCC*
--- NOTE | 2016-08-26 18:52 | CONS ---
Date/Time of Note Date/Time of Note DATE: 08/26/16 TIME: 18:49 Assessment/Plan Assessment/Plan Problems: (1) Type 1 diabetes mellitus with hyperglycemia Status: Chronic Comment: Pt. has yet to receive ordered mealtime insulin. Pt. NPO all day and only had dinner. Only received part of mealtime dosage for dinner b/c eating only partial amount. Will reeval FS tonight and tomorrow am and decide if mealtime doses need to be adjusted. Consultation Date/Type/Reason Admit Date/Time Aug 25, 2016 at 12:53 Initial Consult Date 08/25/16 Type of Consultation: Endocrinology Reason for Consultation [id number] Referring Provider: TANIYA SALAZAR DO 24 HR Interval Summary Constitutional: improved, no complaints Detailed Summary Respiratory: no complaints Cardiovascular: no complaints (s/p stent 2 arteries) Gastrointestinal: no complaints Genitourinary: no complaints Musculoskeletal: no complaints Neurologic: no complaints Exam/Review of Systems Vital Signs Vitals VS - Last 72 Hours, by Label Date Time Temp Pulse Resp B/P Pulse Ox O2 Delivery O2 Flow Rate FiO2 08/26/16 17:25 66 13 123/60 94 Room Air 08/26/16 16:55 68 11 127/60 93 Room Air 08/26/16 16:25 60 11 110/62 94 Room Air 08/26/16 15:55 58 12 108/60 94 Room Air 08/26/16 15:50 54 15 110/61 93 Room Air 08/26/16 15:45 56 18 110/68 95 Room Air 08/26/16 15:40 52 15 109/61 95 Room Air 08/26/16 15:35 54 19 112/56 93 Room Air 08/26/16 15:30 60 20 116/54 93 Room Air 08/26/16 15:25 70 42 107/59 93 Room Air 08/26/16 15:20 60 20 117/60 93 Room Air 08/26/16 15:15 58 21 111/63 93 Room Air 08/26/16 15:10 62 17 119/62 92 Room Air 08/26/16 15:06 08/26/16 15:05 98.8 68 19 117/60 94 Room Air 08/26/16 12:13 69 08/26/16 11:15 98.4 70 18 145/75 96 08/26/16 08:58 60 08/26/16 07:12 97.6 61 18 147/75 92 08/26/16 04:28 98.5 66 20 129/63 94 08/26/16 04:04 72 08/26/16 00:10 70 08/25/16 23:59 98.4 73 18 126/63 08/25/16 20:11 98.0 71 20 154/81 93 08/25/16 20:04 75 08/25/16 20:00 Nasal Cannula 2.0 08/25/16 16:53 62 08/25/16 15:47 98.2 62 19 148/70 94 08/25/16 14:56 61 08/25/16 14:04 98.0 68 19 165/90 96 Room Air 08/25/16 12:08 98.3 79 20 168/96 98 Room Air 08/25/16 11:52 Nasal Cannula 08/25/16 11:07 97.9 66 22 168/96 99 Vital Signs Date Time Temp Pulse Resp B/P Pulse Ox O2 Delivery O2 Flow Rate FiO2 08/26/16 17:25 66 13 123/60 94 Room Air 08/26/16 15:06 08/25/16 20:00 2.0 Intake and Output 08/25/16 08/25/16 08/26/16 15:00 23:00 07:00 Intake Total 120 ml Output Total 450 ml Balance 120 ml -450 ml Exam Constitutional: alert, obese, oriented Psych: nl mood/affect, no complaints Respiratory: clear to auscultation, normal air movement Cardiovascular: nl pulses, regular rate and rhythm, No edema, No murmurs/extra sounds, No rub Gastrointestinal: bowel sounds, nl liver, spleen, non-tender, soft, No mass, No rebound or guarding Musculoskeletal: nl extremities to inspection Extremities: normal pulses, No clubbing, No cyanosis, No edema Neurological: SECURITY AND COMPLIANCE ANALYST II-XII intact, nl mental status, nl speech, nl strength Additional Comments Bedside Glucose - 72 Hours Test 08/25/16 14:34 08/25/16 17:15 08/25/16 20:30 08/26/16 03:23 Bedside Glucose 194mg/dL (70-220) 285mg/dL (70-220) H 374mg/dL (70-220) H 292mg/dL (70-220) H Test 08/26/16 07:55 08/26/16 11:33 08/26/16 17:19 Bedside Glucose 230mg/dL (70-220) H 263mg/dL (70-220) H 220mg/dL (70-220) Results Result Diagram: 08/26/16 0559 08/26/16 0555 Results 24 hrs Laboratory Tests Test 08/25/16 20:30 08/26/16 03:23 08/26/16 03:45 08/26/16 05:55 Bedside Glucose 374 H 292 H Urine Bilirubin NEGATIVE Urine Clarity CLEAR Urine Color LT. YELLOW Urine Glucose >=1000 Urine Hemoglobin NEGATIVE Urine Ketones NEGATIVE Urine Leukocyte Esterase NEGATIVE Urine Nitrite NEGATIVE Urine Random Creatinine 70.38 Urine Random Sodium 59 Urine Specific [place] 1.010 Urine Total Protein Urine Urobilinogen 0.2 E.U./dL Urine pH 6.0 Alanine Aminotransferase (ALT/SGPT) 30 Albumin 3.7 Albumin/Globulin Ratio 1.42 Alkaline Phosphatase 99 Anion Gap 13 Aspartate Amino Transf (AST/SGOT) 19 B-Type Natriuretic Peptide 302 H Blood Urea Nitrogen 17 Calcium Level 8.7 Carbon Dioxide Level 34 H Chloride Level 97 Cholesterol Level 166 Cholesterol/HDL Ratio 6.1 Creatine Kinase 67 Creatine Kinase Index 1.0 Creatinine 0.78 Creatinine Kinase MB (Mass) 0.69 Digoxin Level < 0.4 L Direct Bilirubin 0.00 Free Thyroxine 0.96 Globulin 2.60 Glucose Level 227 H HDL Cholesterol 27 L INR International Normalized Ratio 0.98 Indirect Bilirubin 0.6 LDL Cholesterol, Calculated 90 Potassium Level 3.7 Prothrombin Time 13.0 Prothrombin Time Ratio 1.0 Sodium Level 140 Thyroid Stimulating Hormone (TSH) 1.140 Total Bilirubin 0.6 Total Protein 6.3 Triglycerides Level 247 H Troponin I 0.077 Test 08/26/16 05:59 08/26/16 07:55 08/26/16 11:33 08/26/16 17:19 Basophils # 0.0 Basophils % 0.3 Blood Morphology Comment Eosinophils # 0.4 Eosinophils % 5.2 Hematocrit 36.4 L Hemoglobin 12.1 L Lymphocytes # 2.3 Lymphocytes % 32.5 Magnesium Level 1.8 Mean Corpuscular Hemoglobin 26.4 L Mean Corpuscular Hemoglobin Concent 33.2 Mean Corpuscular Volume 79.5 L Mean Platelet Volume 8.4 Monocytes # 0.5 Monocytes % 7.3 Neutrophils # 3.9 Neutrophils % 54.7 Nucleated Red Blood Cells # 0.0 Nucleated Red Blood Cells % 0.0 Phosphorus Level 3.9 Platelet Count 245 Red Blood Count 4.58 L Red Cell Distribution Width 14.6 H White Blood Count 7.1 Bedside Glucose 230 H 263 H 220 Medications Medications Current Medications Aspirin (Halfprin) 81 mg DAILY PO Last administered on 08/26/16 08:45; Admin Dose 81 MG; Start 08/26/16 at 09:00 Atorvastatin Calcium (Lipitor) 40 mg QHS PO Last administered on 08/25/16 20: 39; Admin Dose 40 MG; Start 08/25/16 at 21:00 Citalopram Hydrobromide (Celexa) 20 mg DAILY PO Last administered on 08/26/16 08:45; Admin Dose 20 MG; Start 08/25/16 at 14:00 Prasugrel (Effient) 10 mg DAILY PO Last administered on 08/26/16 08:45; Admin Dose 10 MG; Start 08/26/16 at 09:00 Nitroglycerin (Nitroglycerin (Sl Tab) 0.4 Mg) 1 tab [id number] PRN SL chest pain Last administered on 08/26/16 08:47; Admin Dose 1 TAB; Start 08/25/16 at 14:00 Miscellaneous Information 1 ea NOTE XX ; Start 08/25/16 at 14:00 Glucose (Glutose) 15 gm Q15M PRN PO DECREASED GLUCOSE; Start 08/25/16 at 14:00 Glucose (Glutose) 22.5 gm Q15M PRN PO DECREASED GLUCOSE; Start 08/25/16 at 14: 00 Dextrose (D50w Syringe) 25 ml Q15M PRN IV DECREASED GLUCOSE; Start 08/25/16 at 14:00 Dextrose (D50w Syringe) 50 ml Q15M PRN IV DECREASED GLUCOSE; Start 08/25/16 at 14:00 Glucagon (Glucagen) 1 mg Q15M PRN IM DECREASED GLUCOSE; Start 08/25/16 at 14:00 Glucose (Glutose) 15 gm Q15M PRN BUCCAL DECREASED GLUCOSE; Start 08/25/16 at 14 :00 Acetylcysteine (Nac) 600 mg BID PO Last administered on 08/26/16 08:45; Admin Dose 600 MG; Start 08/25/16 at 21:00 Ranolazine (Ranexa) 500 mg Q12 PO Last administered on 08/26/16 08:56; Admin Dose 500 MG; Start 08/25/16 at 21:00 Losartan Potassium (Cozaar) 100 mg DAILY PO Last administered on 08/26/16 08: 45; Admin Dose 100 MG; Start 08/26/16 at 09:00 Isosorbide Mononitrate (Imdur) 30 mg BID PO Last administered on 08/26/16 08: 46; Admin Dose 30 MG; Start 08/25/16 at 21:00 Nitroglycerin (Nitroglycerin 2% Oint) 1 inch Q8 TD ; Start 08/25/16 at 22:00 Insulin Glargine (Lantus) 40 unit BID@08,20 SC Last administered on 08/26/16 09:33; Admin Dose 40 UNIT; Start 08/25/16 at 20:00 Diagnostic Test (Pha) (Accucheck) 1 ea 02 XX ; Start 08/26/16 at 02:00 Morphine Sulfate 4 mg 4 mg Q6 PRN IV CHEST PAIN/PAIN Last administered on 10:04; Admin Dose 4 MG; Start 08/25/16 at 21:30 Sodium Chloride (NS) 1,000 ml @ 75 mls/hr [id number] IV ; Start 08/26/16 at 14:52 ; Stop 08/27/16 at 04:11 ANTIONETTE LIEBERMAN MD Aug 26, 2016 18:52
[2016-08-26] MEDS: ATORVASTATIN 40 MG TAB PO SCH (21:34)
[2016-08-27] VITALS (17 sets, daily range): BP systolic 138–173; BP diastolic 60–119; PULSE 54–87; RESP 8–26
[2016-08-27] MEDS: INSULIN GLARGINE [LANtus] 3 ML PEN SC SCH ×2 (02:19→10:58)
[2016-08-27] MEDS: ACCUCHECK AT 2AM (Patients on SS coverage) XX SCH (02:23)
[2016-08-27] MEDS: morphine 4 MG/ML VIAL IV PRN (03:49)
[2016-08-27 05:27] LABS: BASOPHILS % 0.3 % (0.0-2.0); EOSINOPHILS # 0.3 10^3/ul (0.0-0.5); EOSINOPHILS % 3.4 % (0.0-7.0); HEMATOCRIT 34.9 % (42.0-52.0); HEMOGLOBIN 11.6 g/dl (14.0-18.0); LYMPHOCYTES % 24.7 % (15.0-51.0); MEAN CORPUSCULAR HEMOGLOBIN 26.4 pg (29.0-33.0); MEAN CORPUSCULAR HGB CONC 33.3 g/dl (32.0-37.0); MEAN CORPUSCULAR VOLUME 79.4 fl (82.0-101.0); MEAN PLATELET VOLUME 7.9 fl (7.4-10.4); MONOCYTE # 0.5 10^3/ul (0.3-0.9); NEUTROPHIL # 5.3 10^3/ul (1.6-7.5); NEUTROPHILS % 65.6 % (39.0-77.0); PLATELET COUNT 247 10^3/UL (140-440); RED BLOOD COUNT 4.39 10^6/ul (4.70-6.10); RED CELL DISTRIBUTION WIDTH 14.3 % (11.5-14.5); UNCORRECTED WBC 8.1 10^3/ul (4.8-10.8); WHITE BLOOD COUNT 8.1 10^3/ul (4.8-10.8)
[2016-08-27 05:29] LABS: CONDITION 1; LH ANALYZER COMMENTS 1
[2016-08-27 05:33] LABS: POTASSIUM 3.9 mmol/L (3.5-5.1)
[2016-08-27 05:35] LABS: CREATININE 0.77 mg/dl (0.61-1.24)
[2016-08-27 05:36] LABS: CALCIUM 8.7 mg/dl (8.4-10.2); MAGNESIUM 1.9 mg/dl (1.7-2.5); PHOSPHORUS 2.8 mg/dl (2.5-4.9)
[2016-08-27 05:48] LABS: ALBUMIN 3.3 g/dl (3.3-4.9)
[2016-08-27 05:49] LABS: POTASSIUM 3.8 mmol/L (3.5-5.1)
[2016-08-27 05:51] LABS: ALBUMIN/GLOBULIN RATIO 1.32; BILIRUBIN,INDIRECT 0.6 mg/dl (0-1.1); BILIRUBIN,TOTAL 0.6 mg/dl (0.2-1.3); CREATININE 0.72 mg/dl (0.61-1.24); TOTAL PROTEIN 5.8 g/dl (6.1-8.1)
[2016-08-27 05:52] LABS: CALCIUM 8.4 mg/dl (8.4-10.2)
[2016-08-27] MEDS: NITROGLYCERIN 2% 1 GM OINT PKT TD SCH (06:00)
[2016-08-27] MEDS: INSULIN ASPART [NOVOLOG] 3 ML PEN SC SCH ×2 (07:05→08:54)
--- NOTE | 2016-08-27 08:27 | PN ---
DATE: 08/27/2016 CARDIOLOGY FOLLOWUP SUBJECTIVE: Discussed with the staff. Rhythm strip was reviewed. The patient remains in sinus rhy thm. No chest pain or pressure anymore, no palpitation, no groin pain. No bleeding, no hematoma. MEDICATIONS: Reviewed. PHYSICAL EXAMINATION: VITAL SIGNS: Temperature 98.1, heart rate of 55, blood pressure 155/71, respiratory rate of 12, sat urating 96%. GENERAL: Obese gentleman. HEENT: Normocephalic, atraumatic. Pupils are equal. CARDIOVASCULAR: Regular rate and rhythm, systolic murmur. PULMONARY: With no wheezes, rhonchi. GASTROINTESTINAL: Soft, nontender. EXTREMITIES: Trivial edema. VASCULAR: Right femoral with no bleeding or hematoma. LABORATORY: This morning shows sodium 141, potassium 3.8, BUN 12, creatinine 0.72, glucose of 198. ASSESSMENT AND PLAN: 1. Acute coronary syndrome. 2. Status post percutaneous coronary intervention of right coronary artery. 3. Coronary artery disease status post myocardial infarction. 4. History of percutaneous coronary intervention. 5. History of bypass surgery. 6. Diabetes. 7. Hypertension. 8. Dyslipidemia. 9. Morbid obesity. RECOMMENDATIONS: We will continue with the current cardiac care including aspirin and Effient, Losa rtan, statin, Ranexa, beta feliciano. The patient is to walk around today and if no complications, he will be discharged to follow up as an outpatient. Dictated By: MARTITA JUAREZ/COLLIN Conf#: [id number] DID#: [id number] CC: TANIYA SALAZAR DO;*EndCC*
[2016-08-27] MEDS: ASPIRIN (EC) 81 MG TAB PO SCH (08:50)
[2016-08-27] MEDS: LOSARTAN 50 MG TAB PO SCH (08:52)
[2016-08-27] MEDS: CITALOPRAM 20 MG TAB PO SCH (08:52)
[2016-08-27] MEDS: ISOSORBIDE MONONITRATE(SR)30 MG TAB PO SCH (08:52)
[2016-08-27] MEDS ORDERED: METOPROLOL (XL) 100 MG TAB PO SCH (09:00)
[2016-08-27] MEDS: PRASUGREL HYDROCHLORIDE 10 MG TABLET PO SCH (09:03)
[2016-08-27] MEDS: RANOLAZINE (SR) 500 MG TAB PO SCH (09:03)
[2016-08-27] MEDS: ACETYLCYSTEINE 600 MG CAP PO SCH (09:21)
--- NOTE | 2016-08-27 11:49 | RADRPT ---
PROCEDURE: Ultrasound of the soft tissues of the left upper back. CLINICAL INDICATION: The patient complains of a foreign body in the left upper back. TECHNIQUE: High-resolution sonography of the left upper back at the site of the potential foreign body was performed in the axial and sagittal planes. COMPARISON: None FINDINGS: There is no fluid collection. There is no evidence of foreign body. There is a hyperechoic subcutaneous nodule measuring 0.3 x 0.2 x 0.2 cm. IMPRESSION: 1. No evidence of foreign body in the left upper back. 2. Small hyperechoic subcutaneous nodule measuring 0.3 cm, benign. 3. Otherwise unremarkable study. RPTAT: QQ .Johnson Riddle MD, MD Date Time Electronically viewed and signed by .Johnson Riddle MD, on 08/27/2016 11:49 .R/
--- NOTE | 2016-08-27 11:56 | DS ---
DATE OF ADMISSION: 08/25/2016 DATE OF DISCHARGE: HOSPITAL COURSE: This is a 51-year-old male with a past medical history of coronary artery disease, status post coronary artery bypass graft 2 years ago, status post multiple cardiac catheterizations and PCI most recently 2 months ago. He presents to [facility] for ongoing chest pain. The patient states that since his last cardiac catheterization and PCI placement, he has been undergoing cardiac rehabilitation but has been having progressive chest pain. His symptoms 1 day p rior to admission were severe. The patient took nitroglycerin with minimal improvement, but given h is ongoing chest pain, he came into [facility]. The patient was subsequently admi tted for unstable angina. During the hospital course He was seen by rubber flap cutter, Dr. Draper. The patient underwent cardiac catheterization and had a PCI placed in the mid distal right coronary shelley ry. Following the procedure, the patient was chest pain free and had no acute complications. Durin g the hospital course, the patient was also seen by denture processor, Dr. Smith. The patient's ins ulin regimen was adjusted. The patient's glucose levels have improved and he is nearing euglycemia. The patient's other medical problems including anemia, dyslipidemia, and depression have been stab le. The patient also noted to have a left posterior back. An ultrasound was obtained. The results are pending, and the patient will follow up in an outpatient setting for further evaluation. Jairo dhillon, at this time, the patient is stable, no acute distress, will be discharged home. He will foll ow up with his primary care physician, Dr. Smith, Dr. Draper, in 1 week's time. At the time of discharge, the patient is stable, in no acute distress. FINAL DIAGNOSES: 1. Acute coronary syndrome, status post percutaneous coronary intervention to the right coronary ar kina. 2. Hypertension. 3. Diabetes. 4. Anemia. 5. Dyslipidemia. 6. Depression. 7. History of congestive heart failure, currently compensated. 8. Left posterior back lesion. Workup will be done in an outpatient setting. FINAL MEDICATIONS: The patient will be discharged on home medicines of: 1. Aspirin. 2. Atorvastatin. 3. Celexa. 4. Lasix. 5. Lantus 40 units subQ b.i.d. 6. Losartan. 7. Effient. 8. Insulin NovoLog 40 units subQ with meals. 9. Toprol. At time of discharge, the patient is stable, no acute distress. Please note I spent over 40 minutes of time preparing the patient's discharge. Dictated By: TANIYA GUPTA/COLLIN Conf#: [id number] DID#: [id number]
--- NOTE | 2016-08-27 14:50 | RADRPT ---
Vent Rate: 53 bpm RR Interval: 0 msec [place] Interval: 178 msec QRS Duration: 94 msec QT Interval: 466 msec QTC Interval: 437 msec P-R-T Schriever: 58 - 55 - 48 degrees Sinus bradycardia Nonspecific T wave abnormality Abnormal ECG Electronically Signed By: Tanvir Reardon [id number]
[2016-08-28 16:21] LABS: MICROALBUMIN 0.2 mg/dL
== END 2016-08-27 13:55 | disposition home or self-care (01) | DRG 247 ==
LOC: E/R 11:06 → TEL 12:53 → ICU 08-26 15:20
PROVIDERS: ADMIT Internal Medicine; ATTEND Internal Medicine
PROC: 027035Z Dilation of Coronary Artery, One Artery with Two Drug-eluting Intraluminal Devices, Percutaneous Approach (ICD-10-PCS; principal; 2016-08-26)
PROC: 02C03ZZ Extirpation of Matter from Coronary Artery, One Artery, Percutaneous Approach (ICD-10-PCS; 2016-08-26)
PROC: 4A023N7 Measurement of Cardiac Sampling and Pressure, Left Heart, Percutaneous Approach (ICD-10-PCS; 2016-08-26)
PROC: B2031ZZ Plain Radiography of Multiple Coronary Artery Bypass Grafts using Low Osmolar Contrast (ICD-10-PCS; 2016-08-26)
DX: T82.855A Stenosis of coronary artery stent, initial encounter (principal); I11.0 Hypertensive heart disease with heart failure; I50.9 Heart failure, unspecified; I25.110 Atherosclerotic heart disease of native coronary artery with unstable angina pectoris; Z95.1 Presence of aortocoronary bypass graft; Z79.4 Long term (current) use of insulin; D64.9 Anemia, unspecified; F32.9 Major depressive disorder, single episode, unspecified; E10.65 Type 1 diabetes mellitus with hyperglycemia
CPT/HCPCS: 36415; 71010; 76536; 80048; 80053; 80061; 80162; 81003; 82043; 82550; 82553; 82962; 83036; 83690; 83735; 83880; 84100; 84155; 84300; 84439; 84443; 84484; 85025; 85610; 90686; 93005; 93458; 93459; 96374; 96375; C1725; C1757; C1760; C1769; C1874; C1887; C9600; J1644; J1815; J2250; J2270; J2405; J3010; J3480; J7030; Q9967